=== PATIENT | female | born 2000 | race African-American/Black ===

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

== ENCOUNTER 2020-05-12 23:18 | Emergency (ER) | payer BC, OTHER ==
[2020-05-12 23:24] VITALS: BP 145/73; PULSE 100; TEMP 99.3; BMI 22.8
[2020-05-13] MEDS ORDERED: IBUPROFEN 600 MG TABLET (FP) PO ONE ×2 (00:52→00:55)
== END 2020-05-13 01:09 | disposition home or self-care (01) ==
LOC: JER 23:18
DX: S93.402A Sprain of unspecified ligament of left ankle, initial encounter (principal)
CPT/HCPCS: 73610-TC-LT-FY; 73630-TC-LT; 99283-25

== ENCOUNTER 2020-12-18 19:47 | Emergency (ER) | payer BC, OTHER ==
[2020-12-18 19:53] VITALS: BP 147/84; PULSE 101; TEMP 98.2; BMI 25.1
[2020-12-18] MEDS ORDERED: ACETAMINOPHEN 325 MG TABLET (FP) PO ONE (20:14)
[2020-12-18] MEDS ORDERED: ACETAMINOPHEN 325 MG TABLET (FP) ONE (20:40)
== END 2020-12-18 21:27 | disposition home or self-care (01) ==
LOC: JER 19:47
DX: J02.9 Acute pharyngitis, unspecified (principal); R05 Cough; J06.9 Acute upper respiratory infection, unspecified; Z11.52 Encounter for screening for COVID-19
CPT/HCPCS: 87880; 99283-25; C9803; U0003; U0005